=== PATIENT | female | born 2000 | race Caucasian/White ===

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

== ENCOUNTER 2019-01-26 14:41 | Emergency (ER) | payer MEDICAID ==
[2019-01-26 14:50] VITALS: BP 118/63
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
== END 2019-01-26 16:28 | disposition home or self-care (01) ==
LOC: ED 14:41
DX: A60.04 Herpesviral vulvovaginitis (principal); F17.200 Nicotine dependence, unspecified, uncomplicated
CPT/HCPCS: 87491; 87591; 99283

== ENCOUNTER 2019-03-08 21:43 | Outpatient (CLI) | payer SELFPAY | END 2019-03-08 21:44 | disposition EMS.NT | LOC: EMS 21:43 | PROVIDERS: ATTEND Surgery | DX: R53.83 Other fatigue (principal) ==

== ENCOUNTER 2019-04-01 16:49 | Emergency (ER) | payer MEDICAID ==
[2019-04-01 16:57] VITALS: BP 112/73
--- NOTE | 2019-04-01 16:58 | ED Physician Documentation ---
History of Present Illness - Stated complaint Stated Complaint: MOUTH PX - Chief complaint Chief Complaint: Heent - History obtained from History obtained from: Patient - Additonal information Additional information: Patient is a previously healthy 18-year-old female presenting with left-sided tooth discomfort, mostly along the upper teeth and specifically her back molars. Patient reports mild gum swelling without erythema or drainage. Patient denies any particular sensitivity, but pain to the teeth. Patient denies any difficulty swallowing or breathing, as well as any facial swelling or skin changes. Patient denies fever chills. Patient has taken anti-inflammatories with minimal relief. No other improving or worsening factors noted. Review of Systems Constitutional: denies: Fever Throat: reports: Dental pain / toothache. denies: Sore throat Respiratory: denies: Dyspnea PD PAST MEDICAL HISTORY - Past Medical History Cardiovascular: None Respiratory: Asthma Neuro: None Endocrine/Autoimmune: None GI: None DIRECTOR OPERATING ROOM: None, Other : None HEENT: None Psych: Depression, Anxiety, Bipolar disorder Musculoskeletal: None Derm: None - Past Surgical History Past Surgical History: Yes General: Cholecystectomy - Present Medications Home Medications: Ambulatory Orders Medication Instructions Recorded Confirmed Naloxone HCl [Narcan] 4 mg NS ONCE #1 spray 02/25/18 RX: Naproxen 500 mg PO BID #20 tablet 11/15/18 Valacyclovir HCl [Valtrex] 1,000 mg PO BID #20 tablet 01/26/19 Chlorhexidine Gluconate [Peridex] 15 ml MM QID 7 Days mouthwash 04/01/19 - Allergies Allergies/Adverse Reactions: Allergies Allergy/AdvReac Type Severity Reaction Status Date / Time almond Allergy Anaphylaxis Verified 01/26/19 14:50 fluconazole Allergy Hives Verified 01/26/19 14:50 Latex, Natural Rubber Allergy Itching Verified 01/26/19 14:50 - Social History Does the pt smoke?: Yes Smoking Status: Current every day smoker Does the pt drink ETOH?: No Does the pt have substance abuse?: Yes - Immunizations Immunizations are current?: Yes - POLST Patient has POLST: No PD ED PE NORMAL - Vitals Vital signs reviewed: Yes - General General: Alert and oriented X 3, No acute distress, Well developed/nourished - HEENT HEENT: Atraumatic (No facial swelling or erythema), Moist mucous membranes, Pharynx benign. No: Dentition benign (No obvious tooth fractures or avulsions. No obvious dental caries, but food particles present. Tenderness over tooth #16 without significant gum changes. No trismus.) - Respiratory Respiratory: No respiratory distress - Derm Derm: Normal color, Warm and dry, No rash - Extremities Extremities: No deformity, No tenderness to palpate - Neuro Neuro: Alert and oriented X 3, No motor deficit, No sensory deficit - Psych Psych: Normal mood, Normal affect Results - Vitals Vitals: Vital Signs - 24 hr 04/01/19 16:54 Temperature 36.6 C Heart Rate 84 Respiratory 16 Rate Blood Pressure 112/73 O2 Saturation 100 Oxygen O2 Source Room air PD MEDICAL DECISION MAKING - ED course Complexity details: considered differential, d/w patient ED course: Do not find evidence of dental or facial abscess present. No trismus. No salivary gland or other gland obstruction. No pharyngeal or tonsillar changes. No evidence of Darío's angina. Do not find obvious dental caries, fractures, or avulsions. Feel that patient may be experiencing pericoronitis and discussed use of mouthwash, as well as other oral hygiene recommendations. Recommended follow-up with dentistry. Patient voiced understanding and is comfortable with discharge plan. Departure - Departure Disposition: 01 Home, Self Care Clinical Impression: Pericoronitis Instructions: ED Tooth Pain Follow-Up: your,dentist [Other] - Within 3 Days Prescriptions: Chlorhexidine Gluconate [Peridex] 15 ml MM QID 7 Days mouthwash Comments: Recommend good oral hygiene including regular flossing, regular brushing, use of medicated mouthwash as prescribed. Please contact her dentist in the next 2 to 3 days to establish follow-up. Return to ED sooner if experience worsening symptoms or have other concerns. Discharge Date/Time: 04/01/19 17:32
== END 2019-04-01 17:32 | disposition home or self-care (01) ==
LOC: ED 16:49
DX: K05.30 Chronic periodontitis, unspecified (principal); J45.909 Unspecified asthma, uncomplicated; F17.200 Nicotine dependence, unspecified, uncomplicated; F31.9 Bipolar disorder, unspecified; F41.9 Anxiety disorder, unspecified
CPT/HCPCS: 99283

== ENCOUNTER 2020-01-04 21:18 | Outpatient (CLI) | payer OTHER, MEDICAID | END 2020-01-04 21:19 | disposition critical access hospital (66) | LOC: EMS 21:18 | PROVIDERS: ATTEND Surgery | DX: S09.90XA Unspecified injury of head, initial encounter (principal); M54.2 Cervicalgia; R10.30 Lower abdominal pain, unspecified; V49.50XA Passenger injured in collision with unspecified motor vehicles in traffic accident, initial encounter; Y92.414 Local residential or business street as the place of occurrence of the external cause | CPT/HCPCS: A0425; A0429 ==

== ENCOUNTER 2020-01-04 21:46 | Emergency (ER) | payer OTHER, MEDICAID ==
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
[2020-01-04 22:27] LABS: BASOPHILS # (AUTO) 0.1 10^3/uL (0.0-0.1); BASOPHILS % (AUTO) 0.6 %; EOSINOPHILS # (AUTO) 0.6 10^3/uL (0.0-0.7); EOSINOPHILS % (AUTO) 7.5 %; HGB - HEMOGLOBIN 11.8 g/dL (12.0-16.0); LYMPHOCYTES # (AUTO) 1.9 10^3/uL (1.5-3.5); LYMPHOCYTES % (AUTO) 23.4 %; MEAN CORPUSCULAR HEMOGLOBIN 28.6 pg (27.0-31.0); MEAN CORPUSCULAR HGB CONC 33.4 g/dL (32.0-36.0); MEAN CORPUSCULAR VOLUME 85.5 fL (81.0-99.0); MEAN PLATELET VOLUME 9.6 fL (7.9-10.8); MONOCYTES # (AUTO) 0.5 10^3/uL (0.0-1.0); MONOCYTES % (AUTO) 5.7 %; NEUTROPHILS # (AUTO) 5.1 10^3/uL (1.5-6.6); NEUTROPHILS % (AUTO) 62.3 %; PLT - PLATELET COUNT 273 10^3/uL (130-450); RED BLOOD COUNT 4.13 10^6/uL (4.20-5.40); RED CELL DISTRIBUTION WIDTH 13.7 % (12.0-15.0); WHITE BLOOD COUNT 8.1 x10^3/uL (4.8-10.8)
[2020-01-04] MEDS ORDERED: IOVERSOL 320 100 ML VIAL IVP ONE ×2 (22:39→23:46)
[2020-01-04 22:40] LABS: ALBUMIN 4.1 g/dL (3.2-5.5); ALBUMIN/GLOBULIN RATIO 1.4 (1.0-2.2); BILIRUBIN,TOTAL 0.5 mg/dL (0.2-1.0); CALCIUM 9.2 mg/dL (8.5-10.3); CREATININE 0.6 mg/dL (0.4-1.0)
[2020-01-04 22:48] LABS: HCG,QUALITATIVE BLOOD NEGATIVE
[2020-01-04 23:34] LABS: BILIRUBIN,URINE NEGATIVE (NEGATIVE); GLUCOSE, URINE (UA) NEGATIVE (NEGATIVE); KETONES,URINE (UA) NEGATIVE (NEGATIVE); LEUKOCYTE ESTERASE, URINE NEGATIVE (NEGATIVE); NITRITE,URINE NEGATIVE (NEGATIVE); OCCULT BLOOD,URINE NEGATIVE (NEGATIVE); PH,URINE 7.5 PH (5.0-7.5); PROTEIN,URINE NEGATIVE (NEGATIVE); UROBILINOGEN,URINE 0.2 (NORMAL) E.U./dL (NORMAL)
[2020-01-04 23:35] LABS: CLARITY,URINE CLEAR (CLEAR)
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
[2020-01-05 00:36] VITALS: BP 120/84
== END 2020-01-05 00:36 | disposition home or self-care (01) ==
LOC: EDUNIT# → EDBD → ED 21:46
DX: S16.1XXA Strain of muscle, fascia and tendon at neck level, initial encounter (principal); V89.2XXA Person injured in unspecified motor-vehicle accident, traffic, initial encounter; Y93.89 Activity, other specified; Y92.410 Unspecified street and highway as the place of occurrence of the external cause; R91.8 Other nonspecific abnormal finding of lung field; E04.1 Nontoxic single thyroid nodule; F17.200 Nicotine dependence, unspecified, uncomplicated
CPT/HCPCS: 36415; 70450; 71260; 72125; 73590; 73610; 74177; 80053; 81003; 83690; 84703; 85025; 99284; Q9967; 81001; 87086

== ENCOUNTER 2020-06-27 21:24 | Emergency (ER) | payer MEDICAID, OTHER ==
[2020-06-27 21:48] VITALS: BP 132/80
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
== END 2020-06-27 22:05 | disposition home or self-care (01) ==
LOC: ED 21:24
DX: I97.51 Accidental puncture and laceration of a circulatory system organ or structure during a circulatory system procedure (principal); F11.10 Opioid abuse, uncomplicated
CPT/HCPCS: 99281; 99283

== ENCOUNTER 2020-08-03 18:25 | Emergency (ER) | payer MEDICAID ==
--- NOTE | 2020-08-03 18:49 | ED Physician Documentation ---
History of Present Illness - Stated complaint Stated Complaint: FEMALE - Chief complaint Chief Complaint: UTI - History obtained from History obtained from: Patient - History of Present Illness Timing: How many days ago (10) - Additonal information Additional information: 20-year-old female presents to the emergency department for evaluation of vaginal discomfort and discharge as well as pruritus and pain for about 10 days. She reports that she recently began a new sexual relationship with a new partner. She has not been using condoms. She does have a history of chlamydia and herpes in the past. Review of Systems Constitutional: reports: Reviewed and negative Eyes: reports: Reviewed and negative Nose: reports: Reviewed and negative Throat: reports: Reviewed and negative Cardiac: reports: Reviewed and negative Respiratory: reports: Reviewed and negative GI: reports: Reviewed and negative : reports: Dysuria, Discharge, Reviewed and negative Skin: reports: Reviewed and negative Musculoskeletal: reports: Reviewed and negative Neurologic: reports: Reviewed and negative PD PAST MEDICAL HISTORY - Past Medical History Cardiovascular: None Respiratory: Asthma Neuro: None Endocrine/Autoimmune: None GI: None 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, Other : None HEENT: None Psych: Depression, Anxiety, Bipolar disorder Musculoskeletal: None Derm: None - Past Surgical History Past Surgical History: Yes General: Cholecystectomy - Present Medications Home Medications: Ambulatory Orders Medication Instructions Recorded Confirmed No Known Home Medications 01/05/20 01/05/20 - Allergies Allergies/Adverse Reactions: Allergies Allergy/AdvReac Type Severity Reaction Status Date / Time almond Allergy Anaphylaxis Verified 01/04/20 21:54 fluconazole Allergy Hives Verified 01/04/20 21:54 Latex, Natural Rubber Allergy Itching Verified 01/04/20 21:54 - Social History Does the pt smoke?: Yes Smoking Status: Current every day smoker Does the pt drink ETOH?: No Does the pt have substance abuse?: Yes - Immunizations Immunizations are current?: Yes - POLST Patient has POLST: No PD ED PE EXPANDED - General General: Alert, No acute distress - Cardiac Cardiac: Regular Rate, Cap refill < 2 sec - Respiratory Respiratory: Clear to ausultation merry - Abdomen Abdomen: Normal Bowel sounds. No: Tender to palpation - Female Female : Normal external, Vaginal Discharge (Large amount of viscous mucoid white vaginal discharge. Small amount of cervical friability. No CMT or adnexal tenderness). No: CMT, Adnexal Tenderness - Neuro Neuro: Alert and Oriented X 3 - Psych Psych: Manic, Pressured speech Results - Vitals Vitals: Vital Signs - 24 hr 08/03/20 18:27 Temperature 36.5 C Heart Rate 78 Respiratory 18 Rate Blood Pressure 109/70 O2 Saturation 92 Oxygen O2 Source Room air - Labs Labs: Microbiology 08/03/20 19:07 Wet Prep - Final Genital - Cervix Laboratory Tests 08/03/20 19:07 Urine Color YELLOW Urine Clarity CLEAR Urine pH 5.5 Ur Specific [place] >=1.030 H Urine Protein NEGATIVE Urine Glucose (UA) NEGATIVE Urine Ketones NEGATIVE Urine Occult Blood NEGATIVE Urine Nitrite NEGATIVE Urine Bilirubin NEGATIVE Urine Urobilinogen 1 (NORMAL) Ur Leukocyte Esterase TRACE H Urine RBC None Seen Urine WBC 4-5 Ur Squamous Epith Cells MOD Squamous H Urine Bacteria None Seen Urine Mucus Moderate Strands Ur Microscopic Review INDICATED Urine Culture Comments NOT INDICATED Urine HCG, Qual NEGATIVE PD MEDICAL DECISION MAKING - ED course Complexity details: reviewed results, re-evaluated patient, considered differential, d/w patient ED course: 20-year-old female presents the emergency department for evaluation of about 10 days vaginal discharge and pelvic discomfort. This follows recently requiring a new sexual partner. On exam she does not have CMT or adnexal tenderness but there is a moderate amount of pale viscous vaginal discharge. We will treat her empirically today for possible GC with ceftriaxone and azithromycin. Her wet prep was negative. Her exam was not consistent with PID. Patient advised to have her partner tested and treated before she resumes sexual activity with him. E emergent return precautions discussed Departure - Departure Disposition: 01 Home, Self Care Clinical Impression: Vaginal discharge, Cervicitis, Screening examination for STD (sexually transmitted disease) Condition: Stable Record reviewed to determine appropriate education?: Yes Instructions: STD Poss, ED VD Cervicitis Treated Comments: Today we have swabbed you for chlamydia and gonorrhea. Although we do not yet know the test results we have given you antibiotics to treat possible exposure to it. Your trichomonas, yeast and bacterial vaginosis swabs were negative. It is important that your sexual partner be tested and treated for sexually transmitted disease before you engage in sexual intercourse with him again. If you develop fevers, worsening symptoms or have pain with sex please return to the emergency department
[2020-08-03] MEDS ORDERED: AZITHROMYCIN 250 MG TABLET PO STA (19:06)
[2020-08-03] MEDS ORDERED: cefTRIAXone 250 MG VIAL IM ONE (19:06)
[2020-08-03] MEDS ORDERED: LIDOCAINE 1% 2 ML VIAL MC ONE (19:06)
[2020-08-03 19:25] LABS: BILIRUBIN,URINE NEGATIVE (NEGATIVE); GLUCOSE, URINE (UA) NEGATIVE (NEGATIVE); KETONES,URINE (UA) NEGATIVE (NEGATIVE); LEUKOCYTE ESTERASE, URINE TRACE (NEGATIVE); NITRITE,URINE NEGATIVE (NEGATIVE); OCCULT BLOOD,URINE NEGATIVE (NEGATIVE); PH,URINE 5.5 PH (5.0-7.5); PROTEIN,URINE NEGATIVE (NEGATIVE); UROBILINOGEN,URINE 1 (NORMAL) E.U./dL (NORMAL)
[2020-08-03 19:30] LABS: CLARITY,URINE CLEAR (CLEAR); HCG UR QUAL NEGATIVE
[2020-08-03 19:35] LABS: BACTERIA,URINE None Seen /HPF (None Seen); MUCUS,URINE Moderate Strands; RBC,URINE None Seen /HPF (0-5); SQUAMOUS EPITHELIAL CELL,UR MOD Squamous (<= Few)
[2020-08-03 20:17] VITALS: BP 110/60
[2020-08-03 22:01] LABS: TRICHOMONAS VAGINALIS DNA POSITIVE (NEGATIVE)
== END 2020-08-03 20:16 | disposition home or self-care (01) ==
LOC: ED 18:25
DX: N89.8 Other specified noninflammatory disorders of vagina (principal); N72 Inflammatory disease of cervix uteri; Z11.3 Encounter for screening for infections with a predominantly sexual mode of transmission; F17.200 Nicotine dependence, unspecified, uncomplicated
CPT/HCPCS: 81001; 81025; 87210; 87491; 87591; 87661; 96372; 99283; A9270; 81003; 87086

== ENCOUNTER 2020-12-05 22:04 | Emergency (ER) | payer MEDICAID ==
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
[2020-12-05 22:41] LABS: BILIRUBIN,URINE NEGATIVE (NEGATIVE); CLARITY,URINE CLEAR (CLEAR); GLUCOSE, URINE (UA) NEGATIVE (NEGATIVE); HCG UR QUAL NEGATIVE; KETONES,URINE (UA) NEGATIVE (NEGATIVE); LEUKOCYTE ESTERASE, URINE NEGATIVE (NEGATIVE); NITRITE,URINE NEGATIVE (NEGATIVE); OCCULT BLOOD,URINE NEGATIVE (NEGATIVE); PROTEIN,URINE NEGATIVE (NEGATIVE); UROBILINOGEN,URINE 0.2 (NORMAL) E.U./dL (NORMAL)
[2020-12-05] MEDS ORDERED: IOVERSOL 320 100 ML VIAL IVP ONE (23:19)
[2020-12-05 23:25] LABS: BASOPHILS % (AUTO) 0.6 %; EOSINOPHILS # (AUTO) 0.7 10^3/uL (0.0-0.7); EOSINOPHILS % (AUTO) 12.1 %; HGB - HEMOGLOBIN 11.7 g/dL (12.0-16.0); LYMPHOCYTES # (AUTO) 2.1 10^3/uL (1.5-3.5); LYMPHOCYTES % (AUTO) 38.1 %; MEAN CORPUSCULAR HEMOGLOBIN 28.1 pg (27.0-31.0); MEAN CORPUSCULAR HGB CONC 32.2 g/dL (32.0-36.0); MEAN CORPUSCULAR VOLUME 87.3 fL (81.0-99.0); MEAN PLATELET VOLUME 10.3 fL (7.9-10.8); MONOCYTES # (AUTO) 0.3 10^3/uL (0.0-1.0); MONOCYTES % (AUTO) 5.9 %; NEUTROPHILS # (AUTO) 2.3 10^3/uL (1.5-6.6); NEUTROPHILS % (AUTO) 43.1 %; PLT - PLATELET COUNT 204 10^3/uL (130-450); RED BLOOD COUNT 4.16 10^6/uL (4.20-5.40); RED CELL DISTRIBUTION WIDTH 13.8 % (12.0-15.0); WHITE BLOOD COUNT 5.4 x10^3/uL (4.8-10.8)
[2020-12-06 00:23] LABS: ALBUMIN 4.2 g/dL (3.2-5.5); ALBUMIN/GLOBULIN RATIO 1.5 (1.0-2.2); ALKALINE PHOSPHATASE 90 IU/L (42-121); ALT ALANINE AMINOTRANSFERASE 32 IU/L (10-60); AST ASPARTATE AMINOTRANSFERASE 29 IU/L (10-42); BILIRUBIN,TOTAL 0.7 mg/dL (0.2-1.0); BUN - BLOOD UREA NITROGEN 19 mg/dL (6-20); CALCIUM 9.1 mg/dL (8.5-10.3); CARBON DIOXIDE - CO2 27 mmol/L (21-32); CHLORIDE 103 mmol/L (101-111); CREATININE 0.6 mg/dL (0.4-1.0); GLUCOSE 105 mg/dL (70-100); LIPASE 17 U/L (22-51)
[2020-12-06 00:24] LABS: CRP - C-REACTIVE PROTEIN < 1.0 mg/dL (0-1.0)
[2020-12-06] MEDS ORDERED: IOVERSOL 320 100 ML VIAL IVP ONE (01:05)
[2020-12-06 01:12] VITALS: BP 102/68
--- NOTE | 2020-12-06 06:56 | CT Report ---
PROCEDURE: ANGIO CHEST W/WO INDICATIONS: chest pain, h/o PE CONTRAST: IV CONTRAST: Optiray 320 ml: 80 PO CONTRAST: *NO PO CONTRAST TECHNIQUE: After the administration of intravenous contrast, 2 mm thick sections acquired from the pulmonary api debi to the posterior costophrenic angles. 3-dimensional maximum intensity projection (MIP) coronal a nd sagittal reformats were then acquired through the thorax. For radiation dose reduction, the follow ing was used: automated exposure control, adjustment of mA and/or kV according to patient size. COMPARISON: 01/04/2020. FINDINGS: Image quality: Excellent. Pulmonary arteries: Pulmonary arteries are normal in size, and demonstrate no intraluminal filling d efects to suggest central pulmonary embolism. Lungs and pleura: Lungs are clear of acute opacities. Multiple bilateral lung nodules identified in prior study obtained 01/04/2020 are mostly resolved. Small 2-3 mm residual nodules in the right lower lobe are stable compared to the prior exam. No new lung nodules identified. No pleural effusions or p neumothorax. Central and peripheral airways are patent. Mediastinum: Heart size is normal, without pericardial effusion. No mediastinal or hilar adenopathy . Thoracic aorta is normal in caliber and enhancement. Esophagus is normal in caliber, without hiat al hernia. Bones and chest wall: No suspicious bony lesions. Ribs and thoracic spine appear intact throughout. The thyroid is normal. No axillary or supraclavicular adenopathy. Abdomen: Bladder is surgically absent. Visualized upper abdominal solid organs appear normal in the early arterial phase of enhancement. IMPRESSION: 1. No pulmonary embolus. 2. No lung consolidation or pleural effusions. Reviewed by: Ludy Ludny MD, PhD on 12/06/2020 6:55 AM PST Approved by: Ludy Lundy MD, PhD on 12/06/2020 6:55 AM PST Station ID: [id number]
== END 2020-12-06 02:36 | disposition home or self-care (01) ==
LOC: ED 22:04
DX: R07.89 Other chest pain (principal); M54.6 Pain in thoracic spine; F17.200 Nicotine dependence, unspecified, uncomplicated
CPT/HCPCS: 36415; 71275; 80053; 81003; 81025; 83690; 84484; 85025; 85651; 86140; 93005; 99284; Q9967; 81001; 87086

== ENCOUNTER 2022-09-20 08:00 | Outpatient (CLI) | payer MEDICAID | END 2022-09-20 23:59 | disposition home or self-care (01) | LOC: LAB.N 08:00 | PROVIDERS: ATTEND Registered Nurse | DX: R82.79 Other abnormal findings on microbiological examination of urine (principal); R82.998 Other abnormal findings in urine | CPT/HCPCS: 87086 ==

== ENCOUNTER 2022-10-23 12:11 | Emergency (ER) | payer MEDICAID ==
--- NOTE | 2022-10-23 13:49 | XRAY Report ---
PROCEDURE: Chest 1 View X-Ray INDICATIONS: Chest Pain TECHNIQUE: One view of the chest was acquired. COMPARISON: 12/05/2020 FINDINGS: Surgical changes and devices: None. Lungs and pleura: No pleural effusions or pneumothorax. Lungs are clear. Mediastinum: Mediastinal contours appear normal. Heart size is normal. Bones and chest wall: No suspicious bony lesions. Overlying soft tissues appear unremarkable. IMPRESSION: No acute radiographic abnormality Reviewed by: Huey Bland MD on 10/23/2022 1:47 PM PST Approved by: Huey Bland MD on 10/23/2022 1:47 PM PST Station ID: [id number]
--- NOTE | 2022-10-23 16:54 | ED Physician Documentation ---
History of Present Illness - Stated complaint Stated Complaint: HEART RACING,SOA - Chief complaint Chief Complaint: Cardiac - Additonal information Additional information: 22-year-old female was brought to the emergency department on the advice of walk-in clinic provider for evaluation of reported palpitations and a racing heart and diaphoresis. She reports that she was seen at a local walk-in clinic about a month ago and told she had an "overwhelming infection" and took some antibiotics. She is not sure where the infection was. she is a daily heroin injection drug user. Patient reports she has tried detox and rehab multiple times without success. She reports having Narcan at home and has used it multiple times successfully in the past. Patient is attended here by her mom. She is not a good historian and mom provides supplemental history and data. She denies taking any currently prescribed medications. 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, Other : None HEENT: None Psych: Depression, Anxiety, Bipolar disorder Musculoskeletal: None Derm: None - Past Surgical History Past Surgical History: Yes General: Cholecystectomy - Present Medications Home Medications: Ambulatory Orders Medication Instructions Recorded Confirmed No Known Home Medications 01/05/20 12/05/20 - Allergies Allergies/Adverse Reactions: Allergies Allergy/AdvReac Type Severity Reaction Status Date / Time almond Allergy Anaphylaxis Verified 10/23/22 12:43 fluconazole Allergy Hives Verified 10/23/22 12:43 Latex, Natural Rubber Allergy Itching Verified 10/23/22 12:43 - Social History Does the pt smoke?: Yes Smoking Status: Current every day smoker Does the pt drink ETOH?: No Does the pt have substance abuse?: Yes - Immunizations Immunizations are current?: Yes - POLST Patient has POLST: No PD ED PE NORMAL - General General: Alert and oriented X 3, No acute distress, Well developed/nourished - HEENT HEENT: Atraumatic, Moist mucous membranes - Neck Neck: Supple, no meningeal sign, No adenopathy - Cardiac Cardiac: RRR, No murmur (no murmurs heard ) - Respiratory Respiratory: No respiratory distress, Clear bilaterally - Abdomen Abdomen: Normal bowel sounds - Derm Derm: Normal color, Warm and dry, Other (Multiple tracks and scars on both arms) - Extremities Extremities: No deformity, No tenderness to palpate, Normal ROM s pain - Neuro Neuro: Alert and oriented X 3, forepart reducer 2-12 intact Eye Opening: Spontaneous Motor: Obeys Commands Verbal: Oriented GCS Score: 15 Results - Vitals Vitals: Vital Signs - 24 hr 10/23/22 10/23/22 10/23/22 12:31 16:12 16:30 Temperature 36.9 C Heart Rate 103 H 83 94 Respiratory 16 13 22 Rate Blood Pressure 139/86 H 118/77 118/77 O2 Saturation 99 100 100 10/23/22 18:00 Temperature Heart Rate 97 Respiratory 12 Rate Blood Pressure 120/82 H O2 Saturation 100 Oxygen O2 Source Room air - EKG (time done) 1240 Rate: Rate (enter#) (103) Rhythm: NSR [place]: Normal QRS: Low voltage Ischemia: Other Compare to prior EKG: Unchanged from prior EKG Computer interpretation: Agree with computer - Labs Labs: Laboratory Tests 10/23/22 10/23/22 10/23/22 12:57 17:25 17:25 WBC 4.5 L RBC 4.37 Hgb 12.0 Hct 36.5 L MCV 83.5 MCH 27.5 MCHC 32.9 RDW 13.3 Plt Count 196 MPV 9.7 Neut # (Auto) 2.2 Lymph # (Auto) 1.9 [place] # (Auto) 0.2 Eos # (Auto) 0.3 Baso # (Auto) 0.0 Absolute Nucleated RBC 0.00 Nucleated RBC % 0.0 Sodium 136 Potassium 3.6 Chloride 103 Carbon Dioxide 23 Anion Gap 10.0 BUN 15 Creatinine 0.6 Estimated GFR (MDRD) 124 Glucose 132 H Calcium 9.2 Total Bilirubin 0.3 AST 26 ALT 16 Alkaline Phosphatase 107 Troponin I High Sens < 2.3 L Total Protein 7.3 Albumin 4.1 Globulin 3.2 Albumin/Globulin Ratio 1.3 Lipase 24 TSH 10/23/22 17:25 WBC RBC Hgb Hct MCV MCH MCHC RDW Plt Count MPV Neut # (Auto) Lymph # (Auto) [place] # (Auto) Eos # (Auto) Baso # (Auto) Absolute Nucleated RBC Nucleated RBC % Sodium Potassium Chloride Carbon Dioxide Anion Gap BUN Creatinine Estimated GFR (MDRD) Glucose Calcium Total Bilirubin AST ALT Alkaline Phosphatase Troponin I High Sens Total Protein Albumin Globulin Albumin/Globulin Ratio Lipase TSH 2.15 - Rads (name of study) cxr Radiology: Final report received (No acute radiographic abnormality) PD Medical Decision Making - ED course Complexity details: reviewed results, re-evaluated patient, considered differential, d/w patient ED course: 19-year-old female presents emergency department for evaluation of heart palpitations diaphoresis feeling generally unwell. She does have a longstanding history of daily injection heroin use. Was seen a local walk-in clinic who felt that they a may have concern for possible ST elevation in lead V1 and she was advised to come to the ER for repeat evaluation. Patient also reported that about a month ago she was prescribed antibiotics for an overwhelming infection though she has had no recent fevers. I am here in the ER she is alert and well-appearing. She is normotensive without tachycardia. No fevers here. Prolonged auscultation of the heart and lungs reveals no murmurs rubs. Chest x- ray is entirely unremarkable without anything to suggest pneumonia or pleural effusion or heart failure. We did obtain a CBC that showed no leukocytosis or secondary findings of infect ion. She is not anemic. Electrolytes are essentially unremarkable. Given the walk-in clinic provider concern for ST elevation in V1 we did obtain a troponin which was negative. However my interpretation of the EKG is that there is no ST elevation and its essentially unchanged from a previous EKG. We also checked patient's thyroid which was negative. I discussed with patient and her grandmother at the bedside the concern I had for chronic daily heroin use. Patient's been through detox multiple times but once she completes detox no rehab beds are available. She is not yet ready to quit heroin. I offered Narcan prescription but she states she has plenty at home and knows how to use it. At this time no emergent medical condition is seen though I have discussed with the patient emergent return precautions. She is discharged home well-appearing and in stable condition Departure - Departure Disposition: 01 Home, Self Care Clinical Impression: Palpitations, Heroin use Instructions: ED Narcotic Abuse Comments: I wish you well in your journey. I hope that at some point you are able to go to a drug rehab that also does detox at the same time. I feel he would be most successful with this approach though I know these types of beds are hard to find. You were seen today in the emergency department for palpitations. Your EKG, chest x-ray and labs were all entirely normal. I suspect that chronic heroin use and maybe even mild withdrawal between use is the cause of your symptoms. Please always use safely and with others To prevent the risk of accidental overdose. Please do not drive after using. Always use with Narcan available.
[2022-10-23 17:31] LABS: BASOPHILS % (AUTO) 0.4 %; EOSINOPHILS # (AUTO) 0.3 10^3/uL (0.0-0.7); EOSINOPHILS % (AUTO) 6.2 %; HCT - HEMATOCRIT 36.5 % (37.0-47.0); LYMPHOCYTES # (AUTO) 1.9 10^3/uL (1.5-3.5); LYMPHOCYTES % (AUTO) 41.3 %; MEAN CORPUSCULAR HEMOGLOBIN 27.5 pg (27.0-31.0); MEAN CORPUSCULAR HGB CONC 32.9 g/dL (32.0-36.0); MEAN CORPUSCULAR VOLUME 83.5 fL (81.0-99.0); MEAN PLATELET VOLUME 9.7 fL (7.9-10.8); MONOCYTES # (AUTO) 0.2 10^3/uL (0.0-1.0); NEUTROPHILS # (AUTO) 2.2 10^3/uL (1.5-6.6); NEUTROPHILS % (AUTO) 47.9 %; PLT - PLATELET COUNT 196 10^3/uL (130-450); RED BLOOD COUNT 4.37 10^6/uL (4.20-5.40); RED CELL DISTRIBUTION WIDTH 13.3 % (12.0-15.0); WHITE BLOOD COUNT 4.5 x10^3/uL (4.8-10.8)
[2022-10-23 17:45] LABS: ALBUMIN 4.1 g/dL (3.2-5.5); ALBUMIN/GLOBULIN RATIO 1.3 (1.0-2.2); BILIRUBIN,TOTAL 0.3 mg/dL (0.2-1.0); CALCIUM 9.2 mg/dL (8.5-10.3); CREATININE 0.6 mg/dL (0.4-1.0); POTASSIUM 3.6 mmol/L (3.5-5.0); TOTAL PROTEIN 7.3 g/dL (6.7-8.2)
[2022-10-23 18:03] VITALS: BP 120/82
== END 2022-10-23 18:48 | disposition home or self-care (01) ==
LOC: ED 12:11
DX: R00.2 Palpitations (principal); F17.200 Nicotine dependence, unspecified, uncomplicated
CPT/HCPCS: 36415; 80053; 83690; 84443; 84484; 85025; 93005; 99284

== ENCOUNTER 2022-12-15 22:37 | Outpatient (CLI) | payer MEDICAID | END 2022-12-15 22:38 | disposition critical access hospital (66) | LOC: EMS 22:37 | DX: R00.0 Tachycardia, unspecified (principal); R07.9 Chest pain, unspecified | CPT/HCPCS: A0425; A0429; A0999 ==

== ENCOUNTER 2023-08-14 15:49 | Emergency (ER) | payer MEDICAID ==
[2023-08-14 16:10] VITALS: BP 116/90; O2SAT 100
[2023-08-14 16:17] LABS: HCG UR QUAL POSITIVE
== END 2023-08-14 17:11 | disposition left against medical advice (07) ==
LOC: ED 15:49
DX: Z53.21 Procedure and treatment not carried out due to patient leaving prior to being seen by health care provider (principal)
CPT/HCPCS: 81025